=== PATIENT | female | born 1985 | race African-American/Black ===

== ENCOUNTER 2019-02-14 23:00 | Inpatient (IN) | payer BC, MEDICAID ==
[2019-02-14 23:32] LABS: APPEARANCE,URINE SLIGHTLY-CLOUDY; BILIRUBIN,URINE NEGATIVE (NEGATIVE); COLOR,URINE YELLOW; GLUCOSE, URINE NEGATIVE (NEGATIVE); KETONES,URINE TRACE mg/dL (NEGATIVE); LEUKOCYTE ESTERASE,URINE MODERATE (NEGATIVE); NITRITE,URINE NEGATIVE (NEGATIVE); PROTEIN,URINE NEGATIVE (NEGATIVE); URINE SPECIFIC GRAVITY 1.015; UROBILINOGEN,URINE NEGATIVE mg/dL (<2.0)
[2019-02-14 23:52] LABS: URINE AMPHETAMINES SCREEN NEGATIVE; URINE BARBITURATES SCREEN NEGATIVE; URINE BENZODIAZEPINES SCREEN NEGATIVE; URINE COCAINE SCREEN NEGATIVE; URINE MARIJUANA (THC) SCREEN NEGATIVE; URINE METHADONE SCREEN NEGATIVE; URINE PHENCYCLIDINE SCREEN NEGATIVE
[2019-02-15] MEDS ORDERED: RINGERS SOLUTION,LACTATED 1,000 ML IV PRN ×2 (00:37→10:21)
[2019-02-15] MEDS ORDERED: RINGERS SOLUTION,LACTATED 1,000 ML IV ONE (00:37)
[2019-02-15] MEDS ORDERED: FENTANYL/BUPIVACAINE/NS/PF 300 MCG/150 ML RTUINJ EPI ONE (00:42)
[2019-02-15] MEDS ORDERED: FENTANYL CITRATE INJ/PF 100 MCG/2 ML AMPUL ONE ×2 (00:42→10:26)
[2019-02-15] MEDS ORDERED: BUPIVACAINE HCL 0.25 % INJ/PF (2.5 MG/1 ML) 30 ML VIAL ONE (00:42)
[2019-02-15] MEDS ORDERED: EPHEDRINE SULFATE INJ 50 MG/1 ML AMPULE ONE ×2 (00:42→10:26)
[2019-02-15] MEDS ORDERED: LIDOCAINE 1% INJ-PF (10 MG/ML) 30 ML SDV ONE (00:42)
[2019-02-15] MEDS ORDERED: MISOPROSTOL 0.2 MG TABLET ONE (00:42)
[2019-02-15] MEDS ORDERED: OXYTOCIN/NORMAL SALINE 0 UNIT/0 ML RTUINJ ONE (00:42)
[2019-02-15] MEDS ORDERED: OXYTOCIN 10 UNIT/ML VIAL ONE ×2 (00:42→10:26)
[2019-02-15] MEDS ORDERED: PHENYLEPHRINE HCL INJ/PF 10 MG/1 ML SDV ONE ×2 (00:42→10:26)
[2019-02-15 01:22] LABS: ABSOLUTE EOSINOPHILS # (AUTO) 0.1 10^3/uL (0.0-0.6); ABSOLUTE LYMPHOCYTES (AUTO) 2.4 10^3/uL (0.5-4.7); ABSOLUTE MONOCYTES (AUTO) 0.8 10^3/uL (0.1-1.4); ABSOLUTE NEUT (AUTO) 6.9 10^3/uL (1.7-8.2); BASOPHILS % (AUTO) 0.2 % (0-2); EOSINOPHILS % (AUTO) 1.3 % (0-6); HEMATOCRIT 28.4 % (36.0-47.0); LYMPHOCYTES % (AUTO) 23.1 % (13-45); MEAN CORPUSCULAR HEMOGLOBIN 24.3 pg (27.0-33.4); MEAN CORPUSCULAR HGB CONC 31.8 g/dL (32.0-36.0); MEAN CORPUSCULAR VOLUME 76 fl (80-97); MONOCYTES % (AUTO) 7.6 % (3-13); PLATELET COUNT 269 10^3/uL (150-450); RED BLOOD COUNT 3.72 10^6/uL (3.72-5.28); RED CELL DISTRIBUTION WIDTH 17.6 % (11.5-14.0); SEGMENTED NEUTROPHILS % (AUTO) 67.8 % (42-78); TOTAL CELLS COUNTED % (AUTO) 100 %; WHITE BLOOD COUNT 10.2 10^3/uL (4.0-10.5)
--- NOTE | 2019-02-15 05:14 | Admission Physical ---
Datetime Report Generated by CPN: 02/15/2019 05:14 CURRENT ADMISSION Chief Complaint: Uterine Contractions Indication for Induction: Not Applicable Admit Impression : Term, Intrauterine ; Active Labor Admit Plan: Admit to Unit; Initiate Labor Protocol ALLERGIES Medication Allergies: No Medication Allergies: No Known Drug Allergies (09/20/2014) Latex: No Latex Allergies OBSTETRICAL HISTORY EDC: 02/07/2019 00:00 : 2 Para: 1 Gestational Diabetes: No Rh Sensitization: No Incompetent Cervix: No JESSICA: No Infertility: No ART Treatment: No Uterine Anomaly: No IUGR: No Hx Previous C/S: No Macrosomia: No Hx Loss/Stillborn: No PIH: No Hx : No Placenta Previa/Abruption: No Depression/PP Depression: No PTL/PROM: No Post Hemorrhage: No SEE RECORDS Alcohol: No Marijuana : No Cocaine: No Other Illicit Drugs: No Cigarettes: Former Smoker. 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 Heart Disease: No Hosp/Surgery: No Autoimmune Disorder: No Anesthetic Complications: No Kidney Disease: No Abnormal Pap Smear: No Neuro/Epilepsy: No Psychiatric Disorders: No Other Medical Diseases: No Hepatitis/Liver Disease: No Significant Family History: No Varicosities/Phlebitis: No Trauma/Violence : No Thyroid Dysfunction: No INFECTIOUS HISTORY Gonorrhea: No Genital Herpes: No Chlamydia: No Tuberculosis: No Syphilis: No Hepatitis: No HIV/AIDS Exposure: No Rash or Viral Illness: No HPV: No PHYSICAL EXAM General: Normal HEENT: Normal Neurologic: Normal Thyroid: Normal Heart: Normal Lungs: Normal Breast: Normal Back: Normal Abdomen: Normal Genitourinary Exam: Normal Extremities: Normal DTRs: Normal Pelvic Type: Adequate Vital Signs: Reviewed; Within Normal Limits VAGINAL EXAM Dilatation: 4 Effacement: 100 Station: -2 MEMBRANES Pooling: Negative Membranes: Intact FETUS A EGA: 41.0 Monitoring: External US FHR- Baseline: 130 Variability: Moderate 6-25bpm Accelerations: 15X15 Decelerations: None FHR Category: Category I Estimated Weight (gm): 3500 Presentation: Vertex PLANS FOR LABOR AND DELIVERY Labor and Delivery: None Pain Management: Epidural Feeding Preference: Breast Circumcision: N/A INFORMED CONSENT Signature: with User ID: [email or web address]
[2019-02-15] MEDS ORDERED: ONDANSETRON HCL INJ/PF 4 MG/2 ML SDV ONE ×2 (09:33→10:27)
[2019-02-15] MEDS ORDERED: FAMOTIDINE INJ/PF 20 MG/2 ML SDV IV ONE (09:34)
[2019-02-15] MEDS ORDERED: OXYCODONE-ACETAMINOPHEN 5-325 MG TABLET PO PRN ×3 (10:21→11:20)
[2019-02-15] MEDS ORDERED: SIMETHICONE 80 MG TAB.CHEW PO PRN (10:21)
[2019-02-15] MEDS ORDERED: ACETAMINOPHEN 325 MG TABLET PO PRN (10:21)
[2019-02-15] MEDS ORDERED: MEASLES,MUMPS&RUBELLA VACC/PF 0.5 ML VIAL SUBCUT PRN (10:21)
[2019-02-15] MEDS ORDERED: OXYTOCIN/NORMAL SALINE 20 UNIT/1,000 ML RTUINJ IV PRN (10:21)
[2019-02-15] MEDS ORDERED: ACETAMINOPHEN 1,000 MG/100 ML RTUPB IV PRN (10:21)
[2019-02-15] MEDS ORDERED: DIPH/PERTUSS(ACELL)/TETANUS VAC/PF 0.5 ML SYR (>=10YO) IM PRN (10:21)
[2019-02-15] MEDS ORDERED: PROMETHAZINE HCL INJ 25 MG/1 ML VIAL IV PRN ×3 (10:21→11:20)
[2019-02-15] MEDS ORDERED: CEFAZOLIN INJ 1 GM VIAL ONE (10:22)
[2019-02-15] MEDS ORDERED: KETOROLAC TROMETHAMINE INJ/PF 30 MG/1 ML SDV ONE (10:26)
[2019-02-15] MEDS ORDERED: MIDAZOLAM 2 MG/2 ML INJ ONE (10:26)
[2019-02-15] MEDS ORDERED: METHYLERGONOVINE MALEATE INJ/PF 0.2 MG/1 ML AMPULE ONE (10:27)
[2019-02-15] MEDS ORDERED: ACETAMINOPHEN 1,000 MG/100 ML RTUPB IV ONE (10:27)
[2019-02-15] MEDS ORDERED: LIDOCAINE 2% INJ-PF (20 MG/ML) 10 ML AMPUL ONE (10:28)
[2019-02-15] MEDS ORDERED: ONDANSETRON HCL INJ/PF 4 MG/2 ML SDV IV PRN (11:20)
[2019-02-15] MEDS ORDERED: MORPHINE SULFATE 10 MG/ML INJ IV PRN (11:20)
[2019-02-15] MEDS ORDERED: DIPHENHYDRAMINE HCL 50 MG/ML VIAL IV PRN (11:20)
[2019-02-15] MEDS ORDERED: FENTANYL CITRATE INJ/PF 100 MCG/2 ML AMPUL IV PRN ×3 (11:20)
[2019-02-15] MEDS ORDERED: MEPERIDINE HCL/PF INJ 25 MG/1 ML DISP.SYRIN IV PRN (11:20)
--- NOTE | 2019-02-15 11:54 | Operative Report ---
Operative Report DATE OF SURGERY: 02/15/19 PREOPERATIVE DIAGNOSIS: arrest of descent for greater than 5 hours, direct OP. POSTOPERATIVE DIAGNOSIS: Same with the addition of very narrow pelvic inlet with large sacral promontory OPERATION: Primary via low transverse uterine incision SURGEON: GORGE GARCIA ANESTHESIA: Epidural TISSUE REMOVED OR ALTERED: Placenta COMPLICATIONS: None ESTIMATED BLOOD LOSS: 400 cc INTRAOPERATIVE FINDINGS: Viable directly OP. Large sacral promontory PROCEDURE: Patient was taken to the OR and placed in supine position after her spinal anesthesia. She is prepared and draped in sterile fashion. Aranda was placed for drainage of the bladder. Low transverse incision was made and carried down the level of the fascia. The fascial incision was made with knife and extended bilaterally with curved Walden scissors. The fascia was off the rectus muscles using sharp and blunt dissection. The rectus muscles are in the midline. The peritoneum was entered without incident. Bladder blade was placed in uterine segment was identified. A low transverse incision was made creating a bladder flap. Bladder blade was placed low transverse uterine incision was made with the knife and extended with fingertips. The OR nurse provided a vaginal hand to lift the baby's head out of the pelvis. The baby was delivered with some fundal pressure. Mouth and nose were suctioned free. The cord is doubly clamped and cut. Baby is passed off to the endband cutter hand in attendance. The placenta was manually extracted with trailing membranes. The uterus was externalized wrapped in a moist lap sponge. Uterine contents wiped free. There was bleeding from a left uterine artery. This was sutured with and 2 interrupted sutures of 0 chromic to provide hemostasis. Uterus was closed with a running locking layer of 0 chromic suture using the second layer to imbricate the first completing a double layer closure of the uterus. The serosa was closed with a running 2-0 chromic stitch. The pelvis was irrigated and suctioned free of fluid the uterus was replaced in the abdomen. The abdominal wall peritoneum was closed with running 2-0 chromic stitch. Fascia was closed with a running 0 Vicryl in 2 segments. Tracy's layer was brought together with 0 plain gut stitch and the skin was closed with running subcuticular 4-0 undyed Vicryl stitch. The wound was dressed mother and baby did well.
--- NOTE | 2019-02-15 13:12 | Delivery Summary ---
Del Sum A-C Datetime Report Generated by CPN: 02/15/2019 13:11 DELIVERY PERSONNEL DELIVERY PERSONNEL: [id number] Delivery Doctor:: Augustine Spivey MD Anesthesiologist:: Lucas Worthington MD PRACTICE SPECIALIST:: Venessa Ashraf CRNA Vocational Rehab Consultant:: Rossy Hernandes RN Neonatal Nurse Practitioner:: LUANN Roche Nursery Nurse:: Pari Mathur RN Nursery Nurse:: Jenny ALAMO RN Care Professionals/HERB COUNSELOR: Ailyn Ceron CST Care Professionals/HERB COUNSELOR: JUSTINE DOCKERY CST MATERNAL INFORMATION Delivery Anesthesia: Epidural Medications After Delivery: Pitocin Bolus-Please Comment Meds After Delivery Comment: 40 UNITS PITOCIN Estimated Blood Loss (ml): 700 Maternal Complications: None LABOR SUMMARY EDC: 02/07/2019 00:00 No. Babies in Womb: 1 Attempted: No Labor Anesthesia: Epidural LABOR INFORMATION Reason for Induction: Not Applicable Onset of Labor: 02/14/2019 15:00 Complete Dilatation: 02/15/2019 05:06 Oxytocin: N/A Group B Beta Strep: negative Antibiotics # of Doses: N/A Antibiotics Time of Last Dose: N/A Name of Antibiotic Given: N/A Steroids Given: None Reason Steroids Not Administered: Not Applicable MEMBRANES Membranes Rupture Method: Artificial Rupture of Membranes: 02/15/2019 05:06 Length of Rupture (hr): 6.03 Amniotic Fluid Color: Clear Amniotic Fluid Amount: Moderate Amniotic Fluid Odor: Normal STAGES OF LABOR Stage 1 hr: 14 Stage 1 min: 6 Stage 2 hr: 6 Stage 2 min: 2 Stage 3 hr: 0 Stage 3 min: 1 Total Time in Labor hr: 20 Total Time in Labor min: 9 VAGINAL DELIVERY Episiotomy: None Laceration #1: None Laceration Extension #1: N/A CSECTION DELIVERY Primary Indication: Arrest of Descent CSection Urgency: Non-Scheduled CSection Incidence: Primary Labor: Labor Elective: N/A CSection Incision: Lower Uterine Transverse BABY A INFORMATION Delivery Date/Time: 02/15/2019 11:08 Method of Delivery: Born in Route : No : N/A Forceps: N/A Vacuum Extraction: N/A Shoulder Dystocia : No PRESENTATION/POSITION BABY A Presentation: Cephalic Cephalic Presentation: Vertex Breech Presentation: N/A PLACENTA INFORMATION BABY A Placenta Delivery Time : 02/15/2019 11:09 Placenta Method of Delivery: Manual Removal Placenta Status: Delivered SCORES BABY A Heart Rate 1 min: >100 bpm Resp Effort 1 min: Good Cry Reflex Irritability 1 min: Cough or Sneeze or Pulls Away Muscle Tone 1 min: Active Motion Color 1 min: Body Ages, Extremities Blue Resuscitation Effort 1 min: Tactile Stimulation SCORE 1 MIN: 9 Heart Rate 5 min: >100 bpm Resp Effort 5 min: Good Cry Reflex Irritability 5 min: Cough or Sneeze or Pulls Away Muscle Tone 5 min: Active Motion Color 5 min: Body Ages, Extremities Blue Resuscitation Effort 5 min: Tactile Stimulation SCORE 5 MIN: 9 INFANT INFORMATION BABY A Gestational Age at Delivery: 41.0 Gestational Status: Late Term- 41- 41.6 Weeks Infant Outcome : Liveborn Condition : Stable Infant Sex: Female WEIGHT/LENGTH BABY A Birthweight (gm): 3145 Infant Weight (lb): 6 Weight (oz): 15 Infant Length (in): 20.00 Length (cm): 50.80 CORD INFORMATION BABY A No. Cord Vessels: 3 Nuchal Cord : N/A Cord Blood Taken: Yes-For Storage (Mom's Blood type +) ASSESSMENT BABY A Physical Findings at Delivery: Caput Succedaneum; Syriac Spots Respirations: Appears Normal Care By: JRN. Nieves Mace RN Transferred To: [facility] BABY B INFORMATION : N/A
[2019-02-15] MEDS ORDERED: KETOROLAC TROMETHAMINE INJ/PF 30 MG/1 ML SDV IV SCH (14:00)
[2019-02-15] MEDS ORDERED: HYDROMORPHONE HCL INJ/PF 2 MG/ML AMPULE ONE (14:38)
[2019-02-15] MEDS ORDERED: HYDROMORPHONE HCL INJ/PF 2 MG/ML AMPULE IV PRN (14:47)
[2019-02-15] MEDS: DOCUSATE SODIUM 100 MG CAPSULE PO SCH (17:34)
[2019-02-15] MEDS: KETOROLAC TROMETHAMINE INJ/PF 30 MG/1 ML SDV IV SCH (17:34)
[2019-02-15] MEDS: IBUPROFEN 800 MG TABLET PO SCH ×2 (17:54→17:55)
[2019-02-16] MEDS: OXYCODONE-ACETAMINOPHEN 5-325 MG TABLET PO PRN ×3 (00:03→17:58)
[2019-02-16] MEDS: IBUPROFEN 800 MG TABLET PO SCH ×5 (00:12→23:23)
[2019-02-16] MEDS: KETOROLAC TROMETHAMINE INJ/PF 30 MG/1 ML SDV IV SCH ×3 (01:15→18:10)
[2019-02-16 06:45] LABS: HEMATOCRIT 19.8 % (36.0-47.0); MEAN CORPUSCULAR HEMOGLOBIN 23.7 pg (27.0-33.4); MEAN CORPUSCULAR HGB CONC 31.4 g/dL (32.0-36.0); MEAN CORPUSCULAR VOLUME 75 fl (80-97); PLATELET COUNT 223 10^3/uL (150-450); RED BLOOD COUNT 2.63 10^6/uL (3.72-5.28); RED CELL DISTRIBUTION WIDTH 17.6 % (11.5-14.0); WHITE BLOOD COUNT 13.7 10^3/uL (4.0-10.5)
[2019-02-16 06:57] LABS: HEMOGLOBIN 6.2 g/dL (12.0-15.5)
[2019-02-16] MEDS: PRENATAL VITAMIN W DHA CAPSULE PO SCH (09:20)
[2019-02-16] MEDS: DOCUSATE SODIUM 100 MG CAPSULE PO SCH ×2 (09:20→17:55)
[2019-02-16] MEDS ORDERED: NORMAL SALINE 250 ML IV PRN (10:15)
--- NOTE | 2019-02-16 10:15 | PDOC PROGRESS REPORT ---
Subjective Progress Note for:: 02/16/19 Subjective:: Patient states that she feels good. Patient denies chest pain, shortness of breath, fever/chills and nausea/vomiting. However, her hemoglobin is 6.2. She is currently asymptomatic. She is ambulating and voiding without difficulty. She is tolerating a regular diet. She states that her lochia is decreasing. Reason For Visit: Physical Exam - Physical Exam Vital Signs: Temp Pulse Resp BP Pulse Ox 98.4 F 84 16 100/61 100 02/16/19 07:40 02/16/19 07:40 02/16/19 07:40 02/16/19 07:40 02/16/19 07:40 Intake & Output 02/15/19 02/16/19 02/17/19 06:59 06:59 06:59 Output Total 1180 Balance -1180 Weight 83.6 kg General appearance: PRESENT: no acute distress Respiratory exam: PRESENT: clear to auscultation kathryn Cardiovascular exam: PRESENT: RRR GI/Abdominal exam: PRESENT: normal bowel sounds, soft - Appropriate tenderness Extremities exam: ABSENT: calf tenderness, clubbing, full ROM, joint swelling, pedal edema, tenderness, +1 edema, +2 edema, other Result Laboratory Results: 02/16/19 05:59 02/16/19 05:59 WBC 13.7 H RBC 2.63 L Hgb 6.2 L D Hct 19.8 L MCV 75 L MCH 23.7 L MCHC 31.4 L RDW 17.6 H Plt Count 223 Assessment & Plan - Diagnosis (1) Anemia Qualifiers: Anemia type: iron deficiency Is this a current diagnosis for this admission?: Yes (2) IUGR (intrauterine growth retardation), delivered, current hospitalization Is this a current diagnosis for this admission?: Yes (3) Positive GBS test Is this a current diagnosis for this admission?: Yes (4) Qualifiers: Weeks of gestation: 40 weeks Qualified Code(s): Z3A.40 - 40 weeks gestation of Is this a current diagnosis for this admission?: Yes (5) Failed attempted vaginal after previous delivery Is this a current diagnosis for this admission?: Yes (6) Status post repeat low transverse section Is this a current diagnosis for this admission?: Yes - Time Time Spent with patient: 15-24 minutes Medications reviewed and adjusted accordingly: Yes Anticipated discharge: Home Within: within 48 hours - Inpatient Certification Based on my medical assessment, after consideration of the patient's comorbidi ties, presenting symptoms, or acuity I expect that the services needed warrant INPATIENT care.: Yes I certify that my determination is in accordance with my understanding of [place]'s requirements for reasonable and necessary INPATIENT services [42 CFR 412.3e].: Yes Medical Necessity: Need for Pain Control - Plan Summary Plan Summary: 1. Continue current care 2. Transfuse 2 units of packed red blood cells
[2019-02-17] MEDS: IBUPROFEN 800 MG TABLET PO SCH ×2 (06:27→12:45)
--- NOTE | 2019-02-17 09:02 | PDOC PROGRESS REPORT ---
Subjective-OB Progress Note for:: 02/17/19 Subjective: doing well, OOB in room, feeling good, , tolerating low H&H, scnt bleedind, ready to go home Physical Exam (OB) Vital Signs: Temp Pulse Resp BP Pulse Ox 98.3 F 77 16 113/61 100 02/17/19 07:31 02/17/19 07:31 02/17/19 07:31 02/17/19 07:31 02/17/19 07:31 Intake & Output 02/16/19 02/17/19 02/18/19 06:59 06:59 06:59 Intake Total 600 Output Total 1180 Balance -1180 600 - PIH/Pre-Eclampsia DTR's: 1 + Clonus: Negative Headache: Absent Epigastric Pain: No Visual Changes: No - Dressing Removed: No Incision: Dressing Closure Type: opsite - Lochia Lochia Amount: Scant < 10 ml Lochia Color: Rubra/Red - Abdomen Description: Soft, Round Hernia Present: No Fundal Description: Firm, Midline Fundal Height: u/u - u/2 Objective-Diagnostic Laboratory: 02/16/19 05:59 02/15/19 01:09 Blood Type A POSITIVE Antibody Screen NEGATIVE Assessment and Plan(PN) - Assessment and Plan (1) Failed attempted vaginal after previous delivery Is this a current diagnosis for this admission?: Yes (2) Status post repeat low transverse section Is this a current diagnosis for this admission?: Yes (3) Anemia Qualifiers: Anemia type: iron deficiency Is this a current diagnosis for this admission?: Yes (4) Delivery normal Is this a current diagnosis for this admission?: No (5) IUGR (intrauterine growth retardation), delivered, current hospitalization Is this a current diagnosis for this admission?: Yes (6) Positive GBS test Is this a current diagnosis for this admission?: No - Time Spent with Patient Time with patient: Less than 15 minutes Medications reviewed and adjusted accordingly: Yes - Disposition Anticipated Discharge: Home Within: within 24 hours
--- NOTE | 2019-02-17 09:08 | PDOC DISCHARGE SUMMARY ---
Impression - Admit/DC Date/PCP Admission Date/Primary Care Provider: 02/15/19 00:28 BELEN YARBROUGH MD Discharge Date: 02/17/19 - Discharge Diagnosis (1) Failed attempted vaginal after previous delivery Is this a current diagnosis for this admission?: Yes (2) Status post repeat low transverse section Is this a current diagnosis for this admission?: Yes (3) Anemia Is this a current diagnosis for this admission?: Yes (4) Delivery normal Is this a current diagnosis for this admission?: No (5) IUGR (intrauterine growth retardation), delivered, current hospitalization Is this a current diagnosis for this admission?: Yes (6) Positive GBS test Is this a current diagnosis for this admission?: No - Additional Information Discharge Diet: As Tolerated, Regular Discharge Activity: Activity As Tolerated, No Lifting Over 10 Pounds, Pelvic Rest, No tub bath Referrals: BELEN YARBROUGH MD [Primary Care Provider] - (RTC 1 week) Prescriptions: Oxycodone HCl/Acetaminophen [Percocet 5-325 mg Tablet] 1 tab PO Q4HP PRN #20 tablet PRN Reason: Ibuprofen [Motrin 800 mg Tablet] 800 mg PO Q6 #30 tablet Home Medications: No.137/Iron/Folic Acd [ Vitamin Tablet] 1 tab PO DAILY 09/20/14 Ibuprofen [Motrin 800 mg Tablet] 800 mg PO Q6 #30 tablet 02/17/19 Oxycodone HCl/Acetaminophen [Percocet 5-325 mg Tablet] 1 tab PO Q4HP PRN #20 tablet 02/17/19 HPI Gestational Age: 41 Reason(s) for Admission: Induction of Labor Admission Note: AROM Procedures: NST, Ultrasound Intrapartum Procedure(s): : Low Cervical, Transverse Intrapartum Procedure Note: failure to descend Hospital Course Hospital Course: routine, received 2 units of blood, routine post op care Results Laboratory Results: WBC 13.7 10^3/uL (4.0-10.5) H 02/16/19 05:59 RBC 2.63 10^6/uL (3.72-5.28) L 02/16/19 05:59 Hgb 6.2 g/dL (12.0-15.5) L D 02/16/19 05:59 Hct 19.8 % (36.0-47.0) L 02/16/19 05:59 MCV 75 fl (80-97) L 02/16/19 05:59 MCH 23.7 pg (27.0-33.4) L 02/16/19 05:59 MCHC 31.4 g/dL (32.0-36.0) L 02/16/19 05:59 RDW 17.6 % (11.5-14.0) H 02/16/19 05:59 Plt Count 223 10^3/uL (150-450) 02/16/19 05:59 Lymph % (Auto) 23.1 % (13-45) 02/15/19 01:09 [place] % (Auto) 7.6 % (3-13) 02/15/19 01:09 Eos % (Auto) 1.3 % (0-6) 02/15/19 01:09 Baso % (Auto) 0.2 % (0-2) 02/15/19 01:09 Absolute Neuts (auto) 6.9 10^3/uL (1.7-8.2) 02/15/19 01:09 Absolute Lymphs (auto) 2.4 10^3/uL (0.5-4.7) 02/15/19 01:09 Absolute Monos (auto) 0.8 10^3/uL (0.1-1.4) 02/15/19 01:09 Absolute Eos (auto) 0.1 10^3/uL (0.0-0.6) 02/15/19 01:09 Absolute Basos (auto) 0.0 10^3/uL (0.0-0.2) 02/15/19 01:09 Seg Neutrophils % 67.8 % (42-78) 02/15/19 01:09 Urine Color YELLOW 02/14/19 23:11 Urine Appearance SLIGHTLY-CLOUDY 02/14/19 23:11 Urine pH 6.0 (5.0-9.0) 02/14/19 23:11 Ur Specific [place] 1.015 02/14/19 23:11 Urine Protein NEGATIVE mg/dL (NEGATIVE) 02/14/19 23:11 Urine Glucose (UA) NEGATIVE mg/dL (NEGATIVE) 02/14/19 23:11 Urine Ketones TRACE mg/dL (NEGATIVE) H 02/14/19 23:11 Urine Blood MODERATE (NEGATIVE) H 02/14/19 23:11 Urine Nitrite NEGATIVE (NEGATIVE) 02/14/19 23:11 Urine Bilirubin NEGATIVE (NEGATIVE) 02/14/19 23:11 Urine Urobilinogen NEGATIVE mg/dL (<2.0) 02/14/19 23:11 Ur Leukocyte Esterase MODERATE (NEGATIVE) H 02/14/19 23:11 Urine Ascorbic Acid NEGATIVE (NEGATIVE) 02/14/19 23:11 Urine Opiates Screen NEGATIVE 02/14/19 23:11 Urine Methadone Screen NEGATIVE 02/14/19 23:11 Ur Barbiturates Screen NEGATIVE 02/14/19 23:11 Ur Phencyclidine Scrn NEGATIVE 02/14/19 23:11 Ur Amphetamines Screen NEGATIVE 02/14/19 23:11 U Benzodiazepines Scrn NEGATIVE 02/14/19 23:11 Urine Cocaine Screen NEGATIVE 02/14/19 23:11 U Marijuana (THC) Screen NEGATIVE 02/14/19 23:11 RPR NONREACTIVE (NONREACTIVE) 02/15/19 01:09 Blood Type A POSITIVE 02/15/19 01:09 Blood Type Confirm A POSITIVE 02/15/19 01:09 Antibody Screen NEGATIVE 02/15/19 01:09 Crossmatch See Detail 02/15/19 01:09 Plan Health Concerns: anemia, fatigue Plan of Treatment: continue iron BID, iron enriched foods Goals: no complications Time Spent: Less than 30 Minutes
[2019-02-17] MEDS: PRENATAL VITAMIN W DHA CAPSULE PO SCH (09:10)
[2019-02-17] MEDS: DOCUSATE SODIUM 100 MG CAPSULE PO SCH (09:10)
[2019-02-17 09:31] LABS: HEMATOCRIT 27.1 % (36.0-47.0); MEAN CORPUSCULAR HEMOGLOBIN 25.8 pg (27.0-33.4); MEAN CORPUSCULAR HGB CONC 32.4 g/dL (32.0-36.0); PLATELET COUNT 262 10^3/uL (150-450); RED BLOOD COUNT 3.39 10^6/uL (3.72-5.28); RED CELL DISTRIBUTION WIDTH 18.6 % (11.5-14.0); WHITE BLOOD COUNT 13.9 10^3/uL (4.0-10.5)
[2019-02-17 09:33] LABS: HEMOGLOBIN 8.8 g/dL (12.0-15.5); MEAN CORPUSCULAR VOLUME 80 fl (80-97)
[2019-02-17 12:18] VITALS: BP 112/62
[2019-02-17] MEDS ORDERED: INFLUENZA QUAD (6MOS+) 2019-20 VAC 0.5 ML SYR IM ONE (12:27)
== END 2019-02-17 14:10 | disposition home or self-care (01) | DRG 788 ==
LOC: LC 23:00 → LR 02-15 00:28 → 2S 02-15 13:05
PROVIDERS: ADMIT Obstetrics & Gynecology; ATTEND Obstetrics & Gynecology
PROC: 10D00Z1 Extraction of Products of Conception, Low, Open Approach (ICD-10-PCS; principal; 2019-02-15)
PROC: 30233N1 Transfusion of Nonautologous Red Blood Cells into Peripheral Vein, Percutaneous Approach (ICD-10-PCS; 2019-02-16)
DX: O62.1 Secondary uterine inertia (principal); O34.93 Maternal care for abnormality of pelvic organ, unspecified, third trimester; Z3A.41 41 weeks gestation of pregnancy; O99.824 Streptococcus B carrier state complicating childbirth; O36.5930 Maternal care for other known or suspected poor fetal growth, third trimester, not applicable or unspecified; O99.02 Anemia complicating childbirth; D50.9 Iron deficiency anemia, unspecified; Z37.0 Single live birth; Z87.891 Personal history of nicotine dependence
CPT/HCPCS: 1961; 36415; 36430; 59025; 80307; 81005; 85025; 85027; 86592; 86850; 86900; 86901; 86920; 90686; 94760; 94799; J0131; J0690; J1170; J1885; J2210; J2250; J2370; J2405; J2590; J3010; J3490; P9016; S0028